=== PATIENT | male | born 1995 | race Caucasian/White ===

== ENCOUNTER 2018-09-09 14:35 | Emergency (ER) | payer BC ==
[2018-09-09] MEDS ORDERED: Lidocaine 2% PF * 5 ML VIAL INJ ONE (15:35)
[2018-09-09 15:36] VITALS: BP 126/73
--- NOTE | 2018-09-09 15:43 | UC ---
Laceration HPI - HPI Summary HPI Summary: patient was removing a transmission from his truck, cut himself on a piece of metal. it runs acrros the MCP joint and visible severed tendon noted. patient does have good ROM, good sensation and color - History Of Current Complaint Chief Complaint: UCTrauma Stated Complaint: RIGHT HAND LACERATION Time Seen by Provider: 09/09/18 15:23 Hx Obtained From: Patient Laceration Location: Finger Mechanism Of Injury: Sharp Trauma Onset/Duration: Sudden Onset, Lasting Hours Severity: Mild Pain Intensity: 1 Aggravating Factors: Position, Movement - Allergies/Home Medications Allergies/Adverse Reactions: Allergies Allergy/AdvReac Type Severity Reaction Status Date / Time bee venom protein (honey bee) Allergy Intermediate Hives Verified 09/09/18 15:37 cefaclor [From Ceclor] Allergy Intermediate Rash Verified 09/09/18 15:37 PMH/Surg Hx/FS Hx/Imm Hx Previously Healthy: Yes - Surgical History Surgical History: Yes Surgery Procedure, Year, and Place: B/L hernia repair. [facility]Y. T&A - Family History Known Family History: Positive: Hypertension - Social History Alcohol Use: Occasionally Substance Use Type: None Smoking Status (MU): Never Smoked Tobacco - Immunization History Most Recent Influenza Vaccination: no Review of Systems All Other Systems Reviewed And Are Negative: Yes Constitutional: Positive: Negative Skin: Positive: Other - laceration ENT: Positive: Negative Respiratory: Positive: Negative Cardiovascular: Positive: Negative Gastrointestinal: Positive: Negative Genitourinary: Positive: Negative Motor: Positive: Negative Neurovascular: Positive: Negative Musculoskeletal: Positive: Negative Neurological: Positive: Negative Psychological: Positive: Negative Is Patient Immunocompromised?: No Physical Exam Triage Information Reviewed: Yes Appearance: Well-Appearing, Well-Nourished, Pain Distress Vital Signs: Initial Vital Signs Temp 99.3 F 09/09/18 15:31 Pulse 97 09/09/18 15:31 Resp 18 09/09/18 15:31 BP 126/73 09/09/18 15:31 Pulse Ox 98 09/09/18 15:31 Vital Signs Reviewed: Yes Eye Exam: Normal ENT Exam: Normal Dental Exam: Normal Neck exam: Normal Respiratory Exam: Normal Cardiovascular Exam: Normal Abdominal Exam: Normal Bowel Sounds: Positive: Present Musculoskeletal: Positive: Strength Intact, ROM Intact, No Edema, Other: Neurological Exam: Normal Psychological Exam: Normal Skin: Positive: Other - 3 cm laceration, visible tendon end sticking out of wound. Laceration Repair - Laceration Repair 1 Description: Linear Laceration Size After Repair: Length (cm) - 3 Modified For Repair: No Type Injection: Digital Anesthesia Used: 2.0% Lido Cleansing Completed Via Routine Prep: Yes Irrigation With Pressure Irrigation Device: Yes Closure Material: Sutures - 6 Closure Method: Single Layer Suture Of: Skin Suture Type: Prolene Laceration Course/Dx - Course/Dx Course Of Treatment: hx obtained,exam performed ,meds reviewed, talked to ortho strategic communications specialist, irrigated, sutured and dressed wound, ABx prescribed.a nd referred to ortho for follow - Differential Dx - Laceration/Wound Differental Diagnoses: Laceration - Diagnosis Provider Diagnosis: Laceration of thumb with tendon involvement - Physician Notification/Consults Discussed Patient Care With: Chris Harris - confired with Dr Harris, who recommend irrigation, sutures and splint, abx and follow up with hand clinic on Tuesday Discharge - Sign-Out/Discharge Documenting (check all that apply): Patient Departure All imaging exams completed and their final reports reviewed: No Studies - Discharge Plan Condition: Stable Disposition: HOME Prescriptions: Sulfamethox/Trimethoprim DS* [Bactrim DS 800/160 TAB*] 1 tab PO BID #13 tab Patient Education Materials: Laceration (ED) Referrals: No Primary Care Phys,NOPCP [Primary Care Provider] - Chris Harris MD [Medical Doctor] - Additional Instructions: 1. keep area clean dry and splinted. 2. take the antibiotics as prescribed. 3. follow up with [facility] orthopedics on tuesday - Billing Disposition and Condition Condition: STABLE Disposition: Home
[2018-09-09] MEDS ORDERED: Tetan/Diph/Pertus SYR(Tdap)* 0.5 ML SYR(BOOSTRIX) use SYR IM ONE (15:56)
[2018-09-09] MEDS ORDERED: Sulfamethox/Trimethoprim DS 800/160* TAB PO ONE (15:56)
== END 2018-09-09 16:55 | disposition home or self-care (01) ==
LOC: UCCORT 14:35
DX: S61.011A Laceration without foreign body of right thumb without damage to nail, initial encounter (principal); Z91.030 Bee allergy status; Z88.1 Allergy status to other antibiotic agents; W45.8XXA Other foreign body or object entering through skin, initial encounter; Y93.89 Activity, other specified; Y92.9 Unspecified place or not applicable
CPT/HCPCS: 12002; 90471; 90715; 99212; A9270-GY; G0463